=== PATIENT | female | born 1965 | race Caucasian/White ===

== ENCOUNTER 2017-06-02 15:48 | Emergency (ER) | payer BC ==
[~2017-06-02] VITALS: Ht 162.6 cm; Wt 77.8 kg
[~2017-06-02 15:48] MED LIST: GLUCTAB PO; LORTA5 PO; PANT20 PO; WELL150T PO; ZOFR4TAB3 SL
[2017-06-02 16:20] VITALS: BP 162/77; PULSE 92; RESP 16; TEMP 98.6; O2SAT 97
--- NOTE | 2017-06-02 17:24 | PD ---
HPI Chief Complaint: Headache Time Seen by Provider: 17:23 Travel History International Travel<30 days: No Contact w/Intl Traveler<30days: No Traveled to known affect area: No PFSH Past Medical History Diabetes: No Diminished Hearing: No Musculoskeletal: Yes (MS) Menopausal: Yes Dilation and Curettage (D&C): Yes Past Surgical History Section: Yes Cholecystectomy: Yes (SURG X5 FOR GALLSTONES) Social History Alcohol Use: No Tobacco Use: No Substance Use: No Allergies-Medications (Allergen,Severity, Reaction): Coded Allergies: acetaminophen (Unverified Adverse Reaction, Severe, VOMITING, 06/02/17) aspirin (Unverified Adverse Reaction, Severe, VOMITING, 06/02/17) oxycodone (Unverified Adverse Reaction, Severe, VOMITING, 06/02/17) Reported Meds & Prescriptions Reported Meds & Active Scripts Active Zofran ODT (Ondansetron HCl) 4 Mg Tab 4 Mg SL Q6 PRN FOR NAUSEA/VOMITING Protonix (Pantoprazole Sodium) 20 Mg Tabdr 20 Mg PO DAILY Lortab 5/325 Tab (Hydrocodone-Acetaminophen) Acetaminophen 325/5 Hydrocodone Tab 1 Tab PO Q6 Reported Metformin Hcl (Metformin HCl) 500 Mg Tab 500 Mg PO DAILY Wellbutrin Sr (Bupropion HCl) 150 Mg Tab 150 Mg PO DAILY Data Data Last Documented VS Vital Signs Date Time Temp Pulse Resp B/P (MAP) Pulse Ox O2 Delivery O2 Flow Rate FiO2 06/02/17 16:20 98.6 92 16 162/77 (105) 97 Bettie Lopez MD Jun 02, 2017 17:24
[2017-06-02] MEDS ORDERED: WELLTAB39 PO (17:32)
[2017-06-02] MEDS ORDERED: LISD60 PO (17:32)
[2017-06-02] MEDS ORDERED: ZOLP5TAB3 PO (17:32)
[2017-06-02] MEDS ORDERED: ASPI81CH6 CHEW (17:32)
[2017-06-02] MEDS ORDERED: METF500T PO (17:32)
[2017-06-02] MEDS ORDERED: LEXA10TA PO (17:32)
[2017-06-02 17:36] VITALS: BP 150/83
[2017-06-02] MEDS ORDERED: AMOX500C PO (17:36)
[2017-06-02] MEDS ORDERED: LISI-585 PO (17:59)
[2017-06-02] MEDS ORDERED: CLON0.1T PO (17:59)
--- NOTE | 2017-06-02 17:59 | PD ---
HPI Chief Complaint: Headache Time Seen by Provider: 17:27 Travel History International Travel<30 days: No Contact w/Intl Traveler<30days: No Traveled to known affect area: No History of Present Illness HPI Patient presents with complaints of elevated blood pressure. Reports a blood pressure at home with an arm cuff of 190/113. She does have a recent history of elevated blood pressures. She is scheduled for follow with cardiology. She currently is not on any blood pressure medications. History of MS. Increased family stressors and work stressors. Denies any chest pain shortness of breath urinary or bowel symptoms. Denies any nausea vomiting diarrhea or fever. PFSH Past Medical History Diabetes: No Diminished Hearing: No Hypertension: Yes Musculoskeletal: Yes (MS) Reproductive: Yes (PCOS) Influenza Vaccination: Yes ?: Not Menopausal: Yes Dilation and Curettage (D&C): Yes Past Surgical History Section: Yes Cholecystectomy: Yes (SURG X5 FOR GALLSTONES) Social History Alcohol Use: No Tobacco Use: No Substance Use: No Allergies-Medications (Allergen,Severity, Reaction): Coded Allergies: acetaminophen (Unverified Adverse Reaction, Severe, VOMITING, 06/02/17) aspirin (Unverified Adverse Reaction, Severe, VOMITING, 06/02/17) oxycodone (Unverified Adverse Reaction, Severe, VOMITING, 06/02/17) Reported Meds & Prescriptions Reported Meds & Active Scripts Active Reported Amoxicillin 500 Mg Cap 500 Mg PO BID Metformin (Metformin HCl) 500 Mg Tab 500 Mg PO DAILY With a meal Zolpidem (Zolpidem Tartrate) 5 Mg Tab 5 Mg PO HS PRN Lexapro (Escitalopram Oxalate) 10 Mg Tab 10 Mg PO HS Vyvanse (Lisdexamfetamine Dimesylate) 60 Mg Cap 60 Mg PO DAILY Wellbutrin Xl 24 HR (Bupropion HCl) 300 Mg Tab 300 Mg PO DAILY Aspirin Low Dose (Aspirin) 81 Mg Chew 81 Mg CHEW DAILY Review of Systems General / Constitutional: No: Fever Eyes: No: Visual changes HENT: No: Headaches Cardiovascular: No: Chest Pain or Discomfort Respiratory: No: Shortness of Breath Gastrointestinal: No: Abdominal Pain Genitourinary: No: Dysuria Musculoskeletal: No: Pain Skin: No Rash Neurologic: No: Weakness Psychiatric: No: Depression Endocrine: No: Polydipsia Hematologic/Lymphatic: No: Easy Bruising Physical Exam Narrative GENERAL: Well-nourished, well-developed patient. SKIN: Focused skin assessment warm/dry. HEAD: Normocephalic. EYES: No scleral icterus. No injection or drainage. NECK: Supple, trachea midline. No JVD or lymphadenopathy. CARDIOVASCULAR: Regular rate and rhythm without murmurs, gallops, or rubs. RESPIRATORY: Breath sounds equal bilaterally. No accessory muscle use. GASTROINTESTINAL: Abdomen soft, non-tender, nondistended. MUSCULOSKELETAL: No cyanosis, or edema. BACK: Nontender without obvious deformity. No CVA tenderness. Data Data Last Documented VS Vital Signs Date Time Temp Pulse Resp B/P (MAP) Pulse Ox O2 Delivery O2 Flow Rate FiO2 06/02/17 17:36 150/83 (105) 06/02/17 16:20 98.6 92 16 97 MDM Medical Decision Making Medical Screen Exam Complete: Yes Emergency Medical Condition: Yes Differential Diagnosis Urgent hypertension, anxiety, medication side effects, depression Narrative Course Assessment and plan discussed with patient and at bedside Diagnosis Primary Impression: Hypertensive urgency Patient Instructions: General Instructions Additional Instructions: Rest and fluids. Blood pressure medication as prescribed. Clonidine as needed. Keep her in scheduled appointment with cardiology with a blood pressure log for evaluation. Return emergent with any onset of new symptoms. Please provide work note for this week. Med/Other Pt SpecificInfo: Prescription(s) given Scripts Clonidine (Clonidine) 0.1 Mg Tab 0.1 MG PO BID Y for SBP > 170, #5 TAB 0 Refills Prov: Gee Malloy MD 06/02/17 Lisinopril-Hctz (Zestoretic) 10-12.5 Mg Tab 1 TAB PO DAIYL for Blood Pressure Management, #30 TAB 0 Refills Prov: Gee Malloy MD 06/02/17 Disposition: 01 DISCHARGE HOME Condition: Good Gee Malloy MD Jun 02, 2017 17:59
== END 2017-06-02 18:35 | disposition home or self-care (01) ==
LOC: PHED 15:48
DX: I16.0 Hypertensive urgency (principal); I10 Essential (primary) hypertension; Z88.4 Allergy status to anesthetic agent; Z88.5 Allergy status to narcotic agent
CPT/HCPCS: 99284

== ENCOUNTER 2017-06-25 16:10 | Emergency (ER) | payer BC ==
[~2017-06-25] VITALS: Ht 162.6 cm; Wt 73.0 kg
[~2017-06-25 16:10] MED LIST changes: +AMOX500C PO; +ASPI81CH6 CHEW; +CLON0.1T PO; -GLUCTAB PO; +LEXA10TA PO; +LISD60 PO; +LISI-585 PO; -LORTA5 PO; +METF500T PO; -PANT20 PO; -WELL150T PO; +WELLTAB39 PO; -ZOFR4TAB3 SL; +ZOLP5TAB3 PO
[2017-06-25 16:11] VITALS: BP 132/58; PULSE 83; RESP 18; TEMP 97.6; O2SAT 100
[2017-06-25 17:36] LABS: AUTOMATED NEUTROPHIL # 8.1 TH/MM3 (1.8-7.7); BASOPHIL # 0.1 TH/MM3 (0-0.2); BASOPHIL % 0.9 % (0.0-2.0); EOSINOPHIL # 0.2 TH/MM3 (0-0.4); HEMATOCRIT 38.8 % (35.0-46.0); HEMOGLOBIN 13.7 GM/DL (11.6-15.3); LYMPH % 22.8 % (9.0-44.0); LYMPHOCYTE # 2.8 TH/MM3 (1.0-4.8); MEAN CELL VOLUME 85.4 FL (80.0-100.0); MEAN CORPUSCULAR HEMOGLOBIN 30.1 PG (27.0-34.0); MEAN CORPUSCULAR HGB CONC 35.3 % (32.0-36.0); MEAN PLATELET VOLUME 8.1 FL (7.0-11.0); MONO % 8.1 % (0.0-8.0); NEUT % 66.2 % (16.0-70.0); PLATELET COUNT 256 TH/MM3 (150-450); RED BLOOD COUNT 4.54 MIL/MM3 (4.00-5.30); RED CELL DISTRIBUTION WIDTH 13.2 % (11.6-17.2); WHITE BLOOD COUNT 12.3 TH/MM3 (4.0-11.0)
[2017-06-25 17:39] LABS: BILIRUBIN, URINE NEG (NEG); BLOOD, URINE NEG (NEG); GLUCOSE,URINE 1000 mg/dL (NEG); KETONE, URINE TRACE mg/dL (NEG); NITRITE,URINE NEG (NEG); URINE COLOR LIGHT-YELLOW (YELLW/STRAW); URINE LEUKOCYTE ESTERASE NEG (NEG)
[2017-06-25 18:01] LABS: ALBUMIN 3.9 GM/DL (3.4-5.0); ALT (GPT) 23 U/L (10-53); AST (GOT) 21 U/L (15-37); BICARBONATE 24.9 MEQ/L (21.0-32.0); BLOOD UREA NITROGEN 23 MG/DL (7-18); CALCIUM 8.7 MG/DL (8.5-10.1); CHLORIDE 92 MEQ/L (98-107); GLOMERULAR FILTRATION RATE 47 ML/MIN (>89); GLUCOSE,RANDOM 436 MG/DL (74-106); SODIUM (NA) 127 MEQ/L (136-145)
[2017-06-25 18:02] LABS: ALKALINE PHOSPHATASE 99 U/L (45-117); TOTAL BILIRUBIN ADULT 0.3 MG/DL (0.2-1.0); TOTAL PROTEIN 7.3 GM/DL (6.4-8.2)
[2017-06-25] MEDS ORDERED: INSULIN HUMAN REGULAR 1,000 UNITS/10 ML VIAL SQ ONE (19:45)
--- NOTE | 2017-06-25 20:05 | PD ---
HPI Chief Complaint: Abnormal Results Time Seen by Provider: 19:27 Travel History International Travel<30 days: No Contact w/Intl Traveler<30days: No Traveled to known affect area: No History of Present Illness HPI 52-year-old female with a history of MS, PCOS, and HTN presents emergency department with concerns of very elevated blood sugar for approximately 1 month. Patient states that she has also had elevated blood pressure up to 180s systolic. States she was recently placed on lisinopril for her BP and it does not seem to be controlling her BP. Says she went to [place] urgent care May 28 with a blood pressure of 186/119. She subsequently followed up at [facility] where she was prescribed lisinopril. Currently, patient states that she feels diaphoretic and started having blurred vision last night. Patient had a nipple biopsy today and decided to come to emergency department for blood sugars over 500. Patient says that she has had an 11 pound weight loss in approximately 1 month. Patient denies fever, chills, chest pain, shortness breath, nausea, vomiting, diarrhea. Denies abdominal pain. PFSH Past Medical History Diabetes: No Diminished Hearing: No Hypertension: Yes Musculoskeletal: Yes (MS) Reproductive: Yes (PCOS) Menopausal: Yes Dilation and Curettage (D&C): Yes Past Surgical History Section: Yes Cholecystectomy: Yes (SURG X5 FOR GALLSTONES) Social History Alcohol Use: No Tobacco Use: No Substance Use: No Allergies-Medications (Allergen,Severity, Reaction): Coded Allergies: aspirin (Unverified Adverse Reaction, Severe, VOMITING, 06/02/17) oxycodone (Unverified Adverse Reaction, Severe, VOMITING, 06/02/17) Reported Meds & Prescriptions Reported Meds & Active Scripts Active Metformin (Metformin HCl) 500 Mg Tab 500 Mg PO BIDPC 14 Days Clonidine (Clonidine HCl) 0.1 Mg Tab 0.1 Mg PO BID PRN Zestoretic (Lisinopril-Hctz) 10-12.5 Mg Tab 1 Tab PO DAIYL Reported Amoxicillin 500 Mg Cap 500 Mg PO BID Metformin (Metformin HCl) 500 Mg Tab 500 Mg PO DAILY With a meal Zolpidem (Zolpidem Tartrate) 5 Mg Tab 5 Mg PO HS PRN Lexapro (Escitalopram Oxalate) 10 Mg Tab 10 Mg PO HS Vyvanse (Lisdexamfetamine Dimesylate) 60 Mg Cap 60 Mg PO DAILY Wellbutrin Xl 24 HR (Bupropion HCl) 300 Mg Tab 300 Mg PO DAILY Aspirin Low Dose (Aspirin) 81 Mg Chew 81 Mg CHEW DAILY Review of Systems Except as stated in HPI: all other systems reviewed are Neg Physical Exam Narrative GENERAL: WD, Wn, in NAD SKIN: Focused skin assessment warm/dry. diaphoretic HEAD: Atraumatic. Normocephalic. EYES: Pupils equal and round. No scleral icterus. No injection or drainage. ENT: No nasal bleeding or discharge. Mucous membranes pink and moist. NECK: Trachea midline. No JVD. No lymphadenopathy CARDIOVASCULAR: Regular rate and rhythm. No murmur appreciated. RESPIRATORY: No accessory muscle use. Clear to auscultation. Breath sounds equal bilaterally. GASTROINTESTINAL: Abdomen soft, non-tender, nondistended. No CVA tenderness MUSCULOSKELETAL: No obvious deformities. No clubbing. No cyanosis. No edema. NEUROLOGICAL: Awake and alert. No obvious cranial nerve deficits. Motor grossly within normal limits. Normal speech. PSYCHIATRIC: Appropriate mood and affect; insight and judgment normal. Data Data Last Documented VS Vital Signs Date Time Temp Pulse Resp B/P (MAP) Pulse Ox O2 Delivery O2 Flow Rate FiO2 06/25/17 22:49 06/25/17 16:11 97.6 83 18 100 Room Air Orders Orders Complete Blood Count With Diff (06/25/17 16:20) Comprehensive Metabolic Panel (06/25/17 16:20) Magnesium (Mg) (06/25/17 16:20) Beta Hydroxybutyrate (Acetone) (06/25/17 16:20) Urinalysis - C+S If Indicated (06/25/17 16:20) Bedside Glucose REGGIE.Q1H (06/25/17 19:41) Sodium Chlor 0.9% 1000 Ml Inj (Ns 1000 M (06/25/17 19:41) Insulin Human Regular Inj (Novolin R Inj (06/25/17 19:45) Electrocardiogram (06/25/17 19:41) Ed Discharge Order (06/25/17 22:58) Labs Laboratory Tests Test 06/25/17 17:00 White Blood Count 12.3 TH/MM3 Red Blood Count 4.54 MIL/MM3 Hemoglobin 13.7 GM/DL Hematocrit 38.8 % Mean Corpuscular Volume 85.4 FL Mean Corpuscular Hemoglobin 30.1 PG Mean Corpuscular Hemoglobin Concent 35.3 % Red Cell Distribution Width 13.2 % Platelet Count 256 TH/MM3 Mean Platelet Volume 8.1 FL Neutrophils (%) (Auto) 66.2 % Lymphocytes (%) (Auto) 22.8 % Monocytes (%) (Auto) 8.1 % Eosinophils (%) (Auto) 2.0 % Basophils (%) (Auto) 0.9 % Neutrophils # (Auto) 8.1 TH/MM3 Lymphocytes # (Auto) 2.8 TH/MM3 Monocytes # (Auto) 1.0 TH/MM3 Eosinophils # (Auto) 0.2 TH/MM3 Basophils # (Auto) 0.1 TH/MM3 CBC Comment DIFF FINAL Differential Comment Urine Color LIGHT-YELLOW Urine Turbidity CLEAR Urine pH 5.0 Urine Specific [place] 1.015 Urine Protein NEG mg/dL Urine Glucose (UA) 1000 mg/dL Urine Ketones TRACE mg/dL Urine Occult Blood NEG Urine Nitrite NEG Urine Bilirubin NEG Urine Urobilinogen LESS THAN 2.0 MG/DL Urine Leukocyte Esterase NEG Urine RBC 1 /hpf Urine WBC LESS THAN 1 /hpf Microscopic Urinalysis Comment CULT NOT INDICATED Blood Urea Nitrogen 23 MG/DL Creatinine 1.20 MG/DL Random Glucose 436 MG/DL Total Protein 7.3 GM/DL Albumin 3.9 GM/DL Calcium Level 8.7 MG/DL Magnesium Level 2.0 MG/DL Alkaline Phosphatase 99 U/L Aspartate Amino Transf (AST/SGOT) 21 U/L Alanine Aminotransferase (ALT/SGPT) 23 U/L Total Bilirubin 0.3 MG/DL Sodium Level 127 MEQ/L Potassium Level 4.2 MEQ/L Chloride Level 92 MEQ/L Carbon Dioxide Level 24.9 MEQ/L Anion Gap 10 MEQ/L Estimat Glomerular Filtration Rate 47 ML/MIN B-Hydroxybutyrate 0.72 MMOL/L [facility] Medical Decision Making Medical Screen Exam Complete: Yes Emergency Medical Condition: Yes Differential Diagnosis Diabetic ketoacidosis, hyperosmolar hyperglycemic state, hyperglycemia Narrative Course 52-year-old female with a history of MS, PCOS, and HTN presents emergency department with concerns of very elevated blood sugar for approximately 1 month. Patient states that she has also had elevated blood pressure up to 180s systolic. States she was recently placed on lisinopril for her BP and it does not seem to be controlling her BP. Says she went to [place] urgent care May 28 with a blood pressure of 186/119. She subsequently followed up at [facility] where she was prescribed lisinopril. Currently, patient states that she feels diaphoretic and started having blurred vision last night. Patient had a nipple biopsy today and decided to come to emergency department for blood sugars over 500. Patient says that she has had an 11 pound weight loss in approximately 1 month. Patient denies fever, chills, chest pain, shortness breath, nausea, vomiting, diarrhea. Denies abdominal pain. Date Time Temp Pulse Resp B/P (MAP) Pulse Ox O2 Delivery O2 Flow Rate FiO2 06/25/17 16:11 97.6 83 18 132/58 (82) 100 Room Air Laboratory Tests Test 06/25/17 17:00 White Blood Count 12.3 TH/MM3 Red Blood Count 4.54 MIL/MM3 Hemoglobin 13.7 GM/DL Hematocrit 38.8 % Mean Corpuscular Volume 85.4 FL Mean Corpuscular Hemoglobin 30.1 PG Mean Corpuscular Hemoglobin Concent 35.3 % Red Cell Distribution Width 13.2 % Platelet Count 256 TH/MM3 Mean Platelet Volume 8.1 FL Neutrophils (%) (Auto) 66.2 % Lymphocytes (%) (Auto) 22.8 % Monocytes (%) (Auto) 8.1 % Eosinophils (%) (Auto) 2.0 % Basophils (%) (Auto) 0.9 % Neutrophils # (Auto) 8.1 TH/MM3 Lymphocytes # (Auto) 2.8 TH/MM3 Monocytes # (Auto) 1.0 TH/MM3 Eosinophils # (Auto) 0.2 TH/MM3 Basophils # (Auto) 0.1 TH/MM3 CBC Comment DIFF FINAL Differential Comment Urine Color LIGHT-YELLOW Urine Turbidity CLEAR Urine pH 5.0 Urine Specific [place] 1.015 Urine Protein NEG mg/dL Urine Glucose (UA) 1000 mg/dL Urine Ketones TRACE mg/dL Urine Occult Blood NEG Urine Nitrite NEG Urine Bilirubin NEG Urine Urobilinogen LESS THAN 2.0 MG/DL Urine Leukocyte Esterase NEG Urine RBC 1 /hpf Urine WBC LESS THAN 1 /hpf Microscopic Urinalysis Comment CULT NOT INDICATED Blood Urea Nitrogen 23 MG/DL Creatinine 1.20 MG/DL Random Glucose 436 MG/DL Total Protein 7.3 GM/DL Albumin 3.9 GM/DL Calcium Level 8.7 MG/DL Magnesium Level 2.0 MG/DL Alkaline Phosphatase 99 U/L Aspartate Amino Transf (AST/SGOT) 21 U/L Alanine Aminotransferase (ALT/SGPT) 23 U/L Total Bilirubin 0.3 MG/DL Sodium Level 127 MEQ/L Potassium Level 4.2 MEQ/L Chloride Level 92 MEQ/L Carbon Dioxide Level 24.9 MEQ/L Anion Gap 10 MEQ/L Estimat Glomerular Filtration Rate 47 ML/MIN B-Hydroxybutyrate 0.72 MMOL/L Labs significant for leukocytosis at 12.3, sodium 127, potassium 4.2. Glucose 436. BUN/Cr 23/1.2. Glycosuria at 1000, B-hydroxybutyrate 0.72 2L NS IVF 10U Insulin SQ EKG ordered. Blood sugar initially 533, decreased to 338. Repeat at 280. Pt says she has metformin at home but this prescription is 'old'. metformin 500mg BID for outpatient use. Advised to use caution with this medication and that she should follow up with her PCP and consider endocrinology. Pt will be discharged home and advised to follow up with her PCP. Consider insulin as an outpatient. Continue nutritious diet with plenty of fluid intake. Diagnosis Primary Impression: Hyperglycemia Additional Impression: Glycosuria Referrals: [employer] Primary Care Physician Additional Instructions: Take all medications as prescribed. Monitor your blood sugars regularly. Scripts Metformin (Metformin) 500 Mg Tab 500 MG PO BIDPC for Blood Sugar Management for 14 Days, #28 TAB 0 Refills Prov: Charlee Maier 06/25/17 Disposition: 01 DISCHARGE HOME Condition: Stable Charlee Maier Jun 25, 2017 20:05
[2017-06-25] MEDS: SODIUM CHLOR 0.9% 1000 ML INJ 1,000 ML IV SCH ×2 (20:07→21:29)
[2017-06-25] MEDS ORDERED: METF500T PO (22:57)
--- NOTE | 2017-06-26 08:00 | EKG ---
Date Performed: 06/25/2017 Time Performed: 20:09:21 PTAGE: 52 years EKG: Sinus rhythm NORMAL ECG NO PREVIOUS TRACING DOCTOR: Boy Lewis Interpretating Date/Time 06/26/2017 07:58:44
== END 2017-06-25 23:20 | disposition home or self-care (01) ==
LOC: NEPC 16:10
DX: R73.9 Hyperglycemia, unspecified (principal); R81 Glycosuria; I10 Essential (primary) hypertension; Z79.899 Other long term (current) drug therapy
CPT/HCPCS: 80053; 81001; 82010; 83735; 85025; 93005; 96360; 96361; 96372; 99284; J1815; J7030